=== PATIENT | female | born 1945 | race Caucasian/White ===

== ENCOUNTER 2021-03-04 04:41 | Inpatient (IN) | payer BC, MEDICAID ==
[~2021-03-04] VITALS: Ht 152.4 cm; Wt 72.7 kg
[2021-03-04] VITALS (8 sets, daily range): BP systolic 120–154; BP diastolic 58–81
[~2021-03-04 04:41] MED LIST: ASPI-611 PO; CARB200T7 PO; FERR325T28 PO; FURO-150 PO; LISI10TA27 PO; LYR25C PO
[2021-03-04 05:23] LABS: BASOPHILS # (AUTO) 0.1 X10'3 (0-0.2); EOSINOPHILS # (AUTO) 0.4 X10'3 (0-0.9); EOSINOPHILS % (AUTO) 7.4 % (0-6); HEMOGLOBIN 12.3 g/dl (12.0-16.0); LYMPHOCYTES # (AUTO) 1.6 X10'3 (1.1-4.8); LYMPHOCYTES % (AUTO) 27.1 % (21-51); MEAN CORPUSCULAR HGB CONC 32.4 g/dL (33.0-36.5); MEAN CORPUSCULAR VOLUME 83.4 FL (78-98); MEAN PLATELET VOLUME 7.8 FL (7.4-10.4); MONOCYTES # (AUTO) 0.6 X10'3 (0-0.9); MONOCYTES % (AUTO) 9.4 % (2-12); NEUTROPHILS # (AUTO) 3.2 X10'3 (1.8-7.7); NEUTROPHILS % (AUTO) 55.1 % (42-75); PLATELET COUNT 271 X10'3 (140-440); RED BLOOD COUNT 4.56 X10'6 (4.20-5.60); RED CELL DISTRIBUTION WIDTH 15.6 % (11.5-14.5); WHITE BLOOD COUNT 5.9 X10'3 (4.5-11.0)
[2021-03-04] MEDS ORDERED: ATOR20TA PO (05:34)
[2021-03-04] MEDS ORDERED: AMLO-93 PO (05:34)
[2021-03-04] MEDS ORDERED: DOCU-171 PO (05:34)
[2021-03-04] MEDS ORDERED: VIT1CAPS9 PO (05:34)
[2021-03-04 05:38] LABS: ALBUMIN 3.1 G/DL (3.4-5.0); ANION GAP 9 (8-16); BLOOD UREA NITROGEN 12 MG/DL (7-18); BUN/CREATININE RATIO 11.9 (6.6-38.0); CALCIUM 9.3 MG/DL (8.5-10.1); CHLORIDE 110 MMOL/L (99-107); CREATININE 1.01 MG/DL (0.40-0.90); GLUCOSE 136 MG/DL (70-104); POTASSIUM 3.7 MMOL/L (3.5-5.1); SODIUM 146 MMOL/L (135-145); TOTAL CARBON DIOXIDE 26.9 MMOL/L (24-32); eGFR 53 ML/MIN
[2021-03-04] MEDS ORDERED: ondansetron 4mg rapidly disintigrating tab PO PRN (06:35)
[2021-03-04] MEDS ORDERED: bisacodyl 10mg suppository rectal RC PRN (06:35)
[2021-03-04] MEDS ORDERED: diphenhydrAMINE 50 mg/ml inj IV PRN (06:35)
[2021-03-04] MEDS ORDERED: mag hydrox/Alum hydrox/simeth 30ml oral suspension PO PRN (06:35)
[2021-03-04] MEDS ORDERED: acetaminophen 650mg rectal suppository RC PRN (06:35)
[2021-03-04] MEDS ORDERED: HYDROcodone/acetaminophen 10/325mg tab PO PRN (06:35)
[2021-03-04] MEDS ORDERED: diphenhydrAMINE 25mg capsule PO PRN (06:35)
[2021-03-04] MEDS ORDERED: magnesium hydroxide 30ml (MOM) UD suspension PO PRN (06:35)
[2021-03-04] MEDS ORDERED: ondansetron/PF 4mg/2ml inj IV PRN (06:35)
[2021-03-04] MEDS ORDERED: acetaminophen 325mg tablet PO PRN (06:35)
[2021-03-04] MEDS ORDERED: morphine 2 MG/ML inj. syringe IV PRN ×2 (06:35)
[2021-03-04] MEDS ORDERED: HYDROcodone/acetaminophen 5mg/325mg tablet PO PRN (06:35)
[2021-03-04] MEDS ORDERED: metoprolol tartrate 1mg/ml inj IV PRN (06:40)
[2021-03-04] MEDS ORDERED: furosemide 10 MG/1 ML 10ml inj IV ONE (06:40)
[2021-03-04] MEDS ORDERED: dextrose 5%-1/4 NS 250ml IV soln IV ONE (06:40)
[2021-03-04] MEDS ORDERED: nitroGLYCERIN 0.4mg SUBLingual tab SL PRN (06:40)
[2021-03-04] MEDS ORDERED: aminophylline 250mg/10ml inj. IV PRN (06:40)
[2021-03-04] MEDS ORDERED: regadenoson 0.4mg/5ml syringe IV PRN (06:40)
[2021-03-04 07:45] LABS: HEMOGLOBIN A1C 6.2 % (4.5-6.2)
[2021-03-04 07:50] LABS: CREATINE KINASE 41 U/L (26-192); LIPASE 75 U/L (73-393); MAGNESIUM 2.2 MG/DL (1.5-2.4); PHOSPHORUS 3.4 MG/DL (2.3-4.5)
[2021-03-04] MEDS ORDERED: docusate sod 100mg capsule PO SCH (08:00)
[2021-03-04] MEDS ORDERED: heparin, porcine 5000 units/ml vial SQ SCH (08:00)
[2021-03-04] MEDS ORDERED: DEXTROSE 5% IV ONE (08:20)
[2021-03-04] MEDS ORDERED: 1/4 NS IV ONE (08:20)
--- NOTE | 2021-03-04 08:49 | NUR ---
pt up to [facility] voided clear yellow urine. ua sent. c/o cp in epigastric area and thruout abdomen. ekg requested.
--- NOTE | 2021-03-04 08:59 | NUR ---
patient c/o chest pain, EKG done at that time. Sinus Rhythm.
[2021-03-04 09:12] LABS: CLARITY,URINE CLEAR (Clear); COLOR,URINE STRAW (Yellow); GLUCOSE, URINE NEGATIVE (Neg); KETONES,URINE NEGATIVE (Neg); LEUKOCYTE ESTERASE ,URINE NEGATIVE (Neg); NITRITES, URINE NEGATIVE (Neg); OCCULT BLOOD,URINE NEGATIVE (Neg); PROTEIN,URINE NEGATIVE (Neg); UA COLLECTION TYPE CLN CATCH MIDSTREAM; UROBILINOGEN,URINE 0.2 E.U/dL (0.2-1.0)
--- NOTE | 2021-03-04 09:30 | NUR ---
pt states, " i have no pain. 0/10". morphine effective.
[2021-03-04 10:04] LABS: PARTIAL THROMBOPLASTIN TIME 30 SECONDS (22-32)
[2021-03-04 10:15] LABS: D-DIMER 0.75 MG/L FEU (0-0.50)
[2021-03-04 10:19] LABS: CARBAMAZEPINE (TEGRETOL) < 0.5 UG/ML (4.0-12.0)
--- NOTE | 2021-03-04 10:19 | NUR ---
pt to lexiscan via wheelchair
--- NOTE | 2021-03-04 11:39 | NUR ---
BACK FROM [facility].
[2021-03-04] MEDS ORDERED: FLU VACC QS2021-22(6MOS UP)/PF 60 MCG/0.5 ML SYRINGE IM ONE (12:00)
--- NOTE | 2021-03-04 14:36 | NUR ---
HOSPITALIST PAGED, DR REAL CALLED BACK. INFORMED OF PT'S CURRENT STATUS, REVIEWED LABS AND INFORMED THAT DEBRA SCAN WAS NEGATIVE. DR REAL WILL REVIEW PT'S CHARGE AND DETERMINE IF PT IS READY FOR DISCHARGE
--- NOTE | 2021-03-04 16:35 | NUR ---
PAGED DR. REAL TO SEE IF HE HAS DECIDED ON DISCHARGE STATUS.
[2021-03-04] MEDS ORDERED: potassium Cl 40MEQ/1/2NS 520ml 520 ML IV PRN (16:50)
[2021-03-04] MEDS ORDERED: potassium Cl 20 mEq SR tablet PO PRN ×2 (16:50)
[2021-03-04] MEDS ORDERED: normal saline 1000ml 1,000 ML IV SCH ×2 (16:50)
[2021-03-04] MEDS ORDERED: magnesium Cl slow-release 64mg tablet PO PRN (16:50)
[2021-03-04] MEDS ORDERED: magnesium 4gm in 100ml NS 100 ML IV PRN (16:50)
[2021-03-04] MEDS ORDERED: iohexol 350MG/ML 100ml bottle IV ONE (17:16)
--- NOTE | 2021-03-04 17:18 | NUR ---
LO ZHANG IN ER FOR ECHO STUDY ON PT. PT IS REFUSING AND WANTS TO GO HOME. DR REAL HAS BEEN PAGED WITHOUT RETURN CALL. GANG MINER WILL NOTIFIY DR REAL THAT PT IS REFUSING ECHO AND IS WANTING TO LEAVE/ELOPE.
[2021-03-04] MEDS ORDERED: AMLO5TAB PO (17:33)
--- NOTE | 2021-03-04 17:42 | NUR ---
PT UP TO RESTROOM, NO ASSIST NEEDED. PATIENT ASKING TO GO HOME. PRIMARY RN, TANGLED YARN WORKER & HOSPITALIST MADE AWARE.
--- NOTE | 2021-03-04 18:29 | NUR ---
SPOKE WITH DR. REAL. HE HAS CALLED TODAY AND SAID SHE DOES NOT MEET CRITERIA FOR DISCHARGE. INFORMED DR. REAL THAT PT IS LEAVING AMA.
[2021-03-04] MEDS ORDERED: K and/or MAG REPLACEMENT MC SCH (20:00)
[2021-03-04] MEDS ORDERED: beta-carotene(A) w/C & E + minerals tab PO SCH (20:00)
[2021-03-04] MEDS ORDERED: amLODIPine 5mg tablet PO SCH (21:00)
[2021-03-04] MEDS ORDERED: atorvastatin 20mg tablet PO SCH (21:00)
[2021-03-04] MEDS ORDERED: temazepam 15mg capsule PO PRN (21:00)
[2021-03-05] MEDS ORDERED: levoTHYROXINE 25mcg tablet PO SCH (07:00)
[2021-03-05] MEDS ORDERED: lisinopril 10 MG tablet PO SCH (08:00)
[2021-03-05] MEDS ORDERED: aspirin 81mg, enteric-coated 1 TAB TABLET.DR PO SCH (08:00)
[2021-03-05] MEDS ORDERED: docusate sod 100mg capsule PO SCH (08:00)
== END 2021-03-04 18:48 | disposition left against medical advice (07) | DRG 311 ==
LOC: ER 04:42 → ED HOLD 06:40
PROVIDERS: ADMIT Family Medicine; ATTEND Family Medicine
PROC: 4A02XM4 Measurement of Cardiac Total Activity, External Approach (ICD-10-PCS; principal; 2021-03-04)
PROC: 3E073KZ Introduction of Other Diagnostic Substance into Coronary Artery, Percutaneous Approach (ICD-10-PCS; 2021-03-04)
DX: I24.9 Acute ischemic heart disease, unspecified (principal); E87.0 Hyperosmolality and hypernatremia; N17.9 Acute kidney failure, unspecified; I50.32 Chronic diastolic (congestive) heart failure; Z60.2 Problems related to living alone; Z53.29 Procedure and treatment not carried out because of patient's decision for other reasons; E78.5 Hyperlipidemia, unspecified; E78.00 Pure hypercholesterolemia, unspecified; K21.9 Gastro-esophageal reflux disease without esophagitis; E87.8 Other disorders of electrolyte and fluid balance, not elsewhere classified; I11.0 Hypertensive heart disease with heart failure; Z85.841 Personal history of malignant neoplasm of brain; Z90.49 Acquired absence of other specified parts of digestive tract; Z79.899 Other long term (current) drug therapy; Z98.891 History of uterine scar from previous surgery
CPT/HCPCS: 36415; 71045; 78452; 80048; 80156; 81003; 82550; 83036; 83690; 83735; 83880; 84100; 84443; 84484; 85025; 85379; 85610; 85730; 87081; 93005; 93017; 99285; A9500; G0378; J1644; J1940; J2270; J7060; Q9967

== ENCOUNTER 2023-11-15 10:43 | Emergency (ER) | payer BC, MEDICAID ==
[~2023-11-15] VITALS: Ht 152.4 cm; Wt 69.0 kg
[~2023-11-15 10:43] MED LIST changes: +AMLO5TAB PO; +ATOR20TA PO; -CARB200T7 PO; +DOCU-171 PO; -FERR325T28 PO; -FURO-150 PO; -LYR25C PO; +VIT1CAPS9 PO
[2023-11-15 11:22] LABS: BASOPHILS % (AUTO) 0.6 % (0-1); EOSINOPHILS # (AUTO) 0.3 X10'3 (0-0.9); EOSINOPHILS % (AUTO) 3.7 % (0-6); HEMATOCRIT 38.5 % (35.0-45.0); HEMOGLOBIN 12.1 g/dl (12.0-16.0); LYMPHOCYTES # (AUTO) 1.4 X10'3 (1.1-4.8); MEAN CORPUSCULAR HEMOGLOBIN 26.3 PG (27.0-31.0); MEAN CORPUSCULAR HGB CONC 31.4 g/dL (33.0-36.5); MEAN CORPUSCULAR VOLUME 83.8 FL (78-98); MEAN PLATELET VOLUME 7.9 FL (7.4-10.4); MONOCYTES # (AUTO) 0.8 X10'3 (0-0.9); MONOCYTES % (AUTO) 10.1 % (2-12); NEUTROPHILS # (AUTO) 5.1 X10'3 (1.8-7.7); NEUTROPHILS % (AUTO) 66.6 % (42-75); PLATELET COUNT 252 X10'3 (140-440); RED BLOOD COUNT 4.59 X10'6 (4.20-5.60); RED CELL DISTRIBUTION WIDTH 15.8 % (11.5-14.5); WHITE BLOOD COUNT 7.6 X10'3 (4.5-11.0)
[2023-11-15 11:32] LABS: ALBUMIN 3.3 G/DL (3.4-5.0); ANION GAP 7 (8-16); BLOOD UREA NITROGEN 14 MG/DL (7-18); BUN/CREATININE RATIO 15.6 (10.0-20.0); CALCIUM 8.9 MG/DL (8.5-10.1); CHLORIDE 110 MMOL/L (99-107); GLUCOSE 114 MG/DL (70-104); SODIUM 143 MMOL/L (135-145); TOTAL CARBON DIOXIDE 26.1 MMOL/L (24-32); eCRCL 37 ML/MIN; eGFR 61 ML/MIN
[2023-11-15 11:36] LABS: APTT 29 SECONDS (22-32); PROTHROMBIN TIME 10.8 SECONDS (9.0-12.0)
[2023-11-15 12:13] VITALS: TEMP 98.4
[2023-11-15] MEDS ORDERED: ketorolac trometh. 30mg/ml inj. IM ONE (12:25)
[2023-11-15 13:26] LABS: PRO BRAIN NATRIURETIC PEPTIDE 368 PG/ML (0-450)
[2023-11-15] MEDS: ketorolac tromethamine 15mg/ml inj. IM ONE (14:02)
[2023-11-15 14:03] VITALS: BP 143/67; PULSE 60; RESP 16; O2SAT 98
== END 2023-11-15 14:11 | disposition home or self-care (01) ==
LOC: ER 10:44
DX: R20.0 Anesthesia of skin (principal); M54.50 Low back pain, unspecified; I11.0 Hypertensive heart disease with heart failure; I50.9 Heart failure, unspecified; E78.00 Pure hypercholesterolemia, unspecified; K21.9 Gastro-esophageal reflux disease without esophagitis; R40.4 Transient alteration of awareness; Z79.899 Other long term (current) drug therapy; Z79.82 Long term (current) use of aspirin; Z90.49 Acquired absence of other specified parts of digestive tract; Z98.890 Other specified postprocedural states
CPT/HCPCS: 36415; 70450; 71045; 72100; 80048; 83880; 85025; 85610; 85730; 93005; 96372; 99285; J1885